=== PATIENT | male | born 1945 | race Caucasian/White ===

== ENCOUNTER → 2017-03-11 | Outpatient (CLI) | payer MEDICARE ==
[~2017-03-11] MED LIST: ALBUTEROL0.09 MG/A2 INH; ALDACTONE25 MG PO; ALVESCO160 MCG/AC PO; ALVESCO80 MCG/ACT IH; AMIODARONE HYD200 MG PO; ASPIRIN CHILDRE81 MG PO; CALCIUM + D 5001 TAB PO; CALCIUM 500 W/V1 TAB PO; CALCIUM 600/VIT1 TAB PO; CALCIUM CITRATE PO; COQ-10100 MG PO; COREG12.5 MG PO; COREG25 MG PO; COREG6.25 MG PO; FISH OIL 10001000 MG PO; HYDR25T PO; K-DUR 1010 MEQ PO; KEFLEX500 MG PO; LASIX40 MG PO; LISINOPRIL40 MG PO; LOPRESSOR25 MG PO; METFORMIN500 MG PO; PROAIR HFA0.09 MG/AC INH; PROAIR HFA8.5 GM INH; SPIRIVA18 MCG PO; VENTOLIN0.09 MG/AC INH; VITAMIN B122500 MCG SL; VITAMIN D31000 IU PO; XALATAN 0.005%2.5 ML OU; ZOCOR20 MG PO
== END | disposition home or self-care (01) ==
LOC: CARD 02:45
DX: I25.5 Ischemic cardiomyopathy (principal); I49.3 Ventricular premature depolarization

== ENCOUNTER 2017-04-29 21:45 | Inpatient (IN) | payer MEDICARE ==
[~2017-04-29] VITALS: Ht 170.1 cm; Wt 113.9 kg
[2017-04-29 21:56] VITALS: BP 179/69
[2017-04-29] MEDS ORDERED: KLOR-CON SPRIN10 MEQ PO (22:05)
[2017-04-29] MEDS ORDERED: SPIRIVA -- 3018 MCG INH (22:06)
[2017-04-29 22:35] VITALS: BP 180/84
[2017-04-29 22:41] LABS: BASO # 0.1 10*3/uL (0.0-0.1); BASO % 0.9 % (0.0-1.0); EOS # 0.8 10*3/uL (0.0-0.4); EOS % 9.1 % (1.0-4.0); HEMATOCRIT 43.9 % (42.0-52.0); HEMOGLOBIN 15.1 g/dl (14.0-18.0); LYMPH # 2.1 10*3/uL (1.3-4.4); LYMPH % 22.8 % (27.0-41.0); MEAN CELL VOLUME 89.2 fl (80.0-94.0); MEAN CORPUSCULAR HGB 30.7 pg (27.0-31.0); MEAN CORPUSCULAR HGB CONC 34.4 g/dl (33.0-37.0); MEAN PLATELET VOLUME 9.5 fl (9.6-12.3); MONO # 1.1 10*3/uL (0.1-1.0); MONO % 11.4 % (3.0-9.0); NEUT # 5.2 10*3/uL (2.3-7.9); NEUT % 55.5 % (47.0-73.0); PLATELET COUNT AUTOMATED 260 10*3/uL (130-400); RED BLOOD COUNT 4.92 10*6/uL (4.50-5.90); RED CELL DISTRI WIDTH 13.2 % (0-14.5); WHITE BLOOD COUNT 9.3 10*3/uL (4.8-10.8)
[2017-04-29 22:42] LABS: ALKALINE PHOSPHATASE 74 U/L (45-117); BILIRUBIN, DIRECT 0.1 mg/dL (0.0-0.2); BILIRUBIN, TOTAL 0.6 mg/dl (0.2-1.0); BUN 36 mg/dl (7-24); CARBON DIOXIDE 30 mmol/L (21-32); CHLORIDE 98 mmol/L (98-107); EST GLOM FILT AFRICAN AMERICAN 47 ml/min; GLUCOSE 106 mg/dL (65-99); POTASSIUM 4.6 mmol/L (3.5-5.1); SGOT/AST 45 IU/L (3-35); SGPT/ALT 60 U/L (12-78); SODIUM 137 mmol/L (136-145)
[2017-04-29 22:47] LABS: TROPONIN I < 0.015 ng/ml (<0.045)
[2017-04-30 01:22] VITALS: BP 114/54
[2017-04-30 01:45] VITALS: BP 149/81
[2017-04-30 02:30] LABS: LA>2 REFLEX 2 HR DRAW NOW
[2017-04-30 02:41] LABS: LA>2 RFLX FOLLOW UP AT 2 HRS 3.7 mmol/L (0.4-2.0)
[2017-04-30 04:34] LABS: LA>2 REFLEX 4 HR DRAW NOW
[2017-04-30 06:33] LABS: BASO % 0.2 % (0.0-1.0); HEMATOCRIT 39.7 % (42.0-52.0); HEMOGLOBIN 13.4 g/dl (14.0-18.0); LYMPH # 0.5 10*3/uL (1.3-4.4); LYMPH % 8.4 % (27.0-41.0); MEAN CELL VOLUME 89.4 fl (80.0-94.0); MEAN CORPUSCULAR HGB 30.2 pg (27.0-31.0); MEAN CORPUSCULAR HGB CONC 33.8 g/dl (33.0-37.0); MEAN PLATELET VOLUME 9.8 fl (9.6-12.3); MONO # 0.1 10*3/uL (0.1-1.0); MONO % 1.3 % (3.0-9.0); NEUT % 89.6 % (47.0-73.0); PLATELET COUNT AUTOMATED 219 10*3/uL (130-400); RED BLOOD COUNT 4.44 10*6/uL (4.50-5.90); RED CELL DISTRI WIDTH 13.2 % (0-14.5); WHITE BLOOD COUNT 5.6 10*3/uL (4.8-10.8)
[2017-04-30 06:55] LABS: HEMOGLOBIN A1c 6.4 % (4.8-5.6)
[2017-04-30 07:04] LABS: PROTHROMBIN TIME 10.9 SECONDS (9.0-12.4)
[2017-04-30 07:05] LABS: ALBUMIN 3.3 gm/dl (3.1-4.5); BILIRUBIN, TOTAL 0.5 mg/dl (0.2-1.0); MAGNESIUM 1.6 mg/dL (1.5-2.1); POTASSIUM 4.3 mmol/L (3.5-5.1)
[2017-04-30 07:13] LABS: THYROID STIM HORMONE (HS) 2.68 uIU/ml (0.358-4.75)
[2017-04-30 07:14] LABS: FOLIC ACID 23.84 ng/mL (>5.38); VITAMIN D, 25-HYDROXY 39.1 ng/mL (30-100)
[2017-04-30 08:00] VITALS: BP 138/72
[2017-04-30] MEDS ORDERED: ATORVASTATIN CA20 M1 PO (10:53)
[2017-04-30 12:00] VITALS: BP 160/78
[2017-04-30 17:22] VITALS: BP 157/76
[2017-04-30 19:03] LABS: LA>2 REFLEX 2 HR DRAW NOW
[2017-04-30 19:25] LABS: LA>2 RFLX FOLLOW UP AT 2 HRS 3.4 mmol/L (0.4-2.0)
[2017-04-30 20:00] VITALS: BP 156/74
[2017-04-30 21:18] LABS: LA>2 REFLEX 4 HR DRAW NOW
[2017-05-01] VITALS: BP 133/76
[2017-05-01 02:01] LABS: LA>2 REFLEX 2 HR DRAW NOW
[2017-05-01 02:18] LABS: LA>2 RFLX FOLLOW UP AT 2 HRS 2.7 mmol/L (0.4-2.0)
[2017-05-01 04:12] LABS: LA>2 REFLEX 4 HR DRAW NOW
[2017-05-01 06:22] LABS: HEMATOCRIT 38.1 % (42.0-52.0); HEMOGLOBIN 12.8 g/dl (14.0-18.0); MEAN CELL VOLUME 89.6 fl (80.0-94.0); MEAN CORPUSCULAR HGB 30.1 pg (27.0-31.0); MEAN CORPUSCULAR HGB CONC 33.6 g/dl (33.0-37.0); MEAN PLATELET VOLUME 10.2 fl (9.6-12.3); PLATELET COUNT AUTOMATED 234 10*3/uL (130-400); RED BLOOD COUNT 4.25 10*6/uL (4.50-5.90); RED CELL DISTRI WIDTH 13.6 % (0-14.5); WHITE BLOOD COUNT 14.1 10*3/uL (4.8-10.8)
[2017-05-01 06:51] LABS: BURR CELLS FEW; LYMPHOCYTE # 0.6 10*3/uL (1.3-4.4); MONOCYTE # 0.1 10*3/uL (0.1-1.0); NEUTROPHIL # 13.4 10*3/uL (2.3-7.9); NEUTROPHILS 95 % (47-73); PLATELET SUFFICIENCY NORMAL (NORMAL); TOTAL CELLS COUNTED 100 #CELLS
[2017-05-01 06:53] LABS: CARBON DIOXIDE 23 mmol/L (21-32); CHLORIDE 102 mmol/L (98-107); EST GLOM FILT AFRICAN AMERICAN > 60 ml/min; GLUCOSE 178 mg/dL (65-99); POTASSIUM 4.1 mmol/L (3.5-5.1); SODIUM 136 mmol/L (136-145)
[2017-05-01 06:55] LABS: BUN 25 mg/dl (7-24)
[2017-05-01 08:00] VITALS: BP 138/72
[2017-05-01] MEDS ORDERED: PREDNISONE10 MG PO (11:21)
[2017-05-01] MEDS ORDERED: LEVOFLOXACIN500 MG PO (11:21)
[2017-05-01 12:00] VITALS: BP 155/76
== END 2017-05-01 12:43 | disposition home or self-care (01) | DRG 871 ==
LOC: ED 21:45 → 5E 04-30 00:07 → EDHOLD 04-30 00:07 → 5E 04-30 00:34
PROVIDERS: Emergency Medicine; Internal Medicine; Student in an Organized Health Care Education/Training Program
DX: A41.9 Sepsis, unspecified organism (principal); N17.0 Acute kidney failure with tubular necrosis; I11.0 Hypertensive heart disease with heart failure; J18.9 Pneumonia, unspecified organism; E87.2 Acidosis; E11.8 Type 2 diabetes mellitus with unspecified complications; I50.30 Unspecified diastolic (congestive) heart failure; J44.1 Chronic obstructive pulmonary disease with (acute) exacerbation; J44.0 Chronic obstructive pulmonary disease with (acute) lower respiratory infection; R65.20 Severe sepsis without septic shock; E86.0 Dehydration; D72.810 Lymphocytopenia; E78.5 Hyperlipidemia, unspecified; Z95.1 Presence of aortocoronary bypass graft; Z95.0 Presence of cardiac pacemaker; I25.2 Old myocardial infarction; Z87.891 Personal history of nicotine dependence; Z82.49 Family history of ischemic heart disease and other diseases of the circulatory system; Z80.3 Family history of malignant neoplasm of breast; Z88.4 Allergy status to anesthetic agent; Z91.030 Bee allergy status; Z79.51 Long term (current) use of inhaled steroids; Z79.84 Long term (current) use of oral hypoglycemic drugs; Z79.899 Other long term (current) drug therapy

== ENCOUNTER → 2017-07-05 | Outpatient (CLI) | payer MEDICARE ==
[~2017-07-05] MED LIST changes: +ATORVASTATIN CA20 M1 PO; +KLOR-CON SPRIN10 MEQ PO; +LEVOFLOXACIN500 MG PO; +PREDNISONE10 MG PO; +SPIRIVA -- 3018 MCG INH
[2017-07-05 08:07] LABS: BASO # 0.1 10*3/uL (0.0-0.1); BASO % 0.9 % (0.0-1.0); EOS # 0.5 10*3/uL (0.0-0.4); EOS % 9.3 % (1.0-4.0); HEMATOCRIT 40.5 % (42.0-52.0); HEMOGLOBIN 13.6 g/dl (14.0-18.0); LYMPH # 1.5 10*3/uL (1.3-4.4); LYMPH % 27.4 % (27.0-41.0); MEAN CORPUSCULAR HGB 30.6 pg (27.0-31.0); MEAN CORPUSCULAR HGB CONC 33.6 g/dl (33.0-37.0); MEAN PLATELET VOLUME 9.8 fl (9.6-12.3); MONO # 0.6 10*3/uL (0.1-1.0); MONO % 11.5 % (3.0-9.0); NEUT # 2.7 10*3/uL (2.3-7.9); NEUT % 50.5 % (47.0-73.0); PLATELET COUNT AUTOMATED 243 10*3/uL (130-400); RED BLOOD COUNT 4.45 10*6/uL (4.50-5.90); RED CELL DISTRI WIDTH 13.6 % (0-14.5); WHITE BLOOD COUNT 5.4 10*3/uL (4.8-10.8)
[2017-07-05 08:13] LABS: BILIRUBIN NEGATIVE (NEGATIVE); BLOOD NEGATIVE (NEGATIVE); COLOR YELLOW (YELLOW); GLUCOSE NEGATIVE (NEGATIVE); KETONE TRACE (NEGATIVE); LEUKO ESTERASE NEGATIVE (NEGATIVE); NITRITE NEGATIVE (NEGATIVE); PROTEIN NEGATIVE (NEGATIVE)
[2017-07-05 08:17] LABS: CLARITY SL CLOUDY (CLEAR)
[2017-07-05 08:18] LABS: ALBUMIN 3.4 gm/dl (3.1-4.5); POTASSIUM 4.5 mmol/L (3.5-5.1)
[2017-07-05 08:19] LABS: BILIRUBIN, TOTAL 0.6 mg/dl (0.2-1.0); TOTAL PROTEIN 6.8 gm/dL (6.4-8.2)
[2017-07-05 08:20] LABS: CALCIUM OXALATE CRYSTALS 2+
[2017-07-05 08:21] LABS: HEMOGLOBIN A1c 6.4 % (4.8-5.6)
[2017-07-05 08:22] LABS: HYALINE CAST TNTC
[2017-07-05 08:51] LABS: PROTHROMBIN TIME 10.1 SECONDS (9.0-12.4)
== END | disposition home or self-care (01) ==
LOC: LAB 07:14
PROVIDERS: Orthopaedic Surgery
DX: Z01.818 Encounter for other preprocedural examination (principal); E11.9 Type 2 diabetes mellitus without complications; J44.9 Chronic obstructive pulmonary disease, unspecified; I25.10 Atherosclerotic heart disease of native coronary artery without angina pectoris; R35.0 Frequency of micturition; D68.8 Other specified coagulation defects; I10 Essential (primary) hypertension; Z95.1 Presence of aortocoronary bypass graft

== ENCOUNTER → 2017-08-15 | Outpatient (CLI) | payer MEDICARE | END | disposition home or self-care (01) | LOC: CT 02:09 | DX: M41.86 Other forms of scoliosis, lumbar region (principal); M48.05 Spinal stenosis, thoracolumbar region; M62.50 Muscle wasting and atrophy, not elsewhere classified, unspecified site; M47.896 Other spondylosis, lumbar region; M25.78 Osteophyte, vertebrae ==

== ENCOUNTER → 2018-01-29 | Outpatient (CLI) | payer MEDICARE ==
[2018-01-29 08:03] LABS: ALBUMIN 3.4 gm/dl (3.1-4.5); ALKALINE PHOSPHATASE 80 U/L (45-117); BUN 20 mg/dl (7-24); CHLORIDE 98 mmol/L (98-107); CREATININE 1.27 mg/dL (0.70-1.30); POTASSIUM 4.7 mmol/L (3.5-5.1); SGOT/AST 53 IU/L (3-35); SGPT/ALT 90 U/L (12-78); SODIUM 136 mmol/L (136-145); TOTAL PROTEIN 7.3 gm/dL (6.4-8.2)
== END | disposition home or self-care (01) ==
LOC: LAB 07:16
PROVIDERS: Internal Medicine Interventional Cardiology
DX: I25.10 Atherosclerotic heart disease of native coronary artery without angina pectoris (principal); I25.5 Ischemic cardiomyopathy; E78.2 Mixed hyperlipidemia; R06.09 Other forms of dyspnea; Z95.810 Presence of automatic (implantable) cardiac defibrillator; I11.0 Hypertensive heart disease with heart failure; I50.9 Heart failure, unspecified; Z87.891 Personal history of nicotine dependence; Z95.1 Presence of aortocoronary bypass graft; Z79.899 Other long term (current) drug therapy

== ENCOUNTER 2018-10-31 15:41 | Inpatient (IN) | payer MEDICARE ==
[~2018-10-31] VITALS: Ht 170.1 cm; Wt 116.3 kg
--- NOTE | ~2018-10-31 | PR ---
[place], [place] PROGRESS NOTE NAME: CHRIST SANCHEZ I UNIT #: [id number] ROOM: 511 DOCTOR: VENKAT FOREMAN MD,JOSE R BIRTHDATE: [birth year] DOS: 11/03/2018 SUBJECTIVE: The patient was noted comfortable at this time, sitting on the chair this morning. Denies symptoms of coughing, sputum expectoration, chest pain at the present time. Denies any pain of the lower extremity edema. OBJECTIVE: VITAL SIGNS: Normal temperature, respiratory rate 20, heart rate 69, blood pressure 132/72, pulse oxygen saturation recorded as 97% at rest on room air. HEAD, EYES, EARS, NOSE, AND THROAT: Chronic obesity. NECK: Supple. CARDIOVASCULAR SYSTEM: S1, S2 audible. LUNGS: Clear bilaterally. There were no wheezing or crackles. ABDOMEN: Soft and obese. EXTREMITIES: Chronic changes. LABORATORY DATA: CBC this morning, WBC count 12.6, hemoglobin 13.8, platelet count normal. The BMP this morning, BUN 43, creatinine 1.45, sodium 132. IMPRESSION: 1. Resolving acute exacerbation of bronchial asthma progressive with current medical management. 2. Mild hyponatremia. 3. History of chronic kidney disease. PLAN OF THERAPY: Continuation of the bronchodilators, oxygen supplementation. Solu-Medrol has been changed to 40 mg daily dosing. Discharge planning per primary care attending, upon stability would be suggested. JOSE R ROBLEDO MD CM:PNTRANS [id number] JOSE R FOREMAN MD 11/03/18 1239 interface
--- NOTE | ~2018-10-31 | EKG ---
[place], [place] ELECTROCARDIOGRAM REPORT NAME: CHRIST SANCHEZ I UNIT #: [id number] ROOM: 511 DOCTOR: BIJAN DRAFT REPORT BIRTHDATE: [birth year] [facility] Test Date: 2018-10-31 Test Time: 18:54:15 Pat Name: CHRIST SANCHEZ Department: Room: 511 Gender: M Electrical Journeyman: Any Chou : 1945 Requested By: DIDI ESCOBAR Order Number: [id number] Reading MD: Ann Tong MD Measurements Intervals [place] Rate: 61 P: -69 OR: 45 QRS: 23 QRSD: 134 T: 129 QT: 416 QTc: 419 Interpretive Statements Sinus or ectopic atrial rhythm Short OR interval Left bundle branch block Baseline wander in lead(s) V4 Electronically Signed On 11-07-2018 8:42:49 PST by Ann Tong MD CM:EKGRPT:ELECTROCARDIOGRAM REPORT [id number] DIDI WANG DRAFT REPORT DIDI ESCOBAR DO
--- NOTE | ~2018-10-31 | EKG ---
[place], [place] ELECTROCARDIOGRAM REPORT NAME: CHRIST SANCHEZ I UNIT #: [id number] ROOM: 511 DOCTOR: BIJAN DRAFT REPORT BIRTHDATE: [birth year] [facility] Test Date: 2018-11-01 Test Time: 14:17:17 Pat Name: CHRIST SANCHEZ Department: Room: 511 1 Gender: M Barometers Calibrator: EMILIANO : 1945 Requested By: DALIA NICHOLAS Order Number: [id number] Reading MD: Ann Tong MD Measurements Intervals [place] Rate: 69 P: 15 NV: 295 QRS: 21 QRSD: 140 T: 153 QT: 437 QTc: 469 Interpretive Statements Sinus rhythm Multiple ventricular premature complexes Prolonged NV interval Probable left atrial enlargement IVCD, consider atypical LBBB Electronically Signed On 11-07-2018 8:44:35 PST by Ann Tong MD CM:EKGRPT:ELECTROCARDIOGRAM REPORT [id number] DALIA WANG DRAFT REPORT DLAIA NICHOLAS DO
--- NOTE | ~2018-10-31 | CON ---
[place], [place] REPORT OF CONSULTATION [id number] UN[facility] #: [id number] ROOM: 511 DOCTOR: JOSE R WORTHY MD BIRTHDATE: [birth year] DOS: 11/02/2018 REASON FOR CONSULTATION: Assess the patient's symptoms of coughing and wheezing. HISTORY OF PRESENT ILLNESS: This is a 73-year-old white male patient with known history of uncomplicated moderate persistent bronchial asthma, treated at home. The patient was noted in usual state of health, last assessment in the office over a week ago. He stated he became acutely ill, started with having nonproductive cough that started with active wheezing and shortness of breath. Later on, the patient started with a cough, which has started after the hospitalization. There were no symptoms of chest pain that prompted the patient to come to the hospital. The patient has been assessed in the hospital with recurrent symptoms then admitted to the hospital. The patient denies symptoms of fever or chills. Denies chest pain or hemoptysis. The respiratory symptom has been decreased significantly in the last 24 hours as per patient with current treatment, which has been given to the patient. REVIEW OF SYSTEMS: CONSTITUTIONAL: Fatigue and tiredness reported without any symptoms of fever or chills. EYES: Denies burning, redness, or tenderness. EARS, NOSE, THROAT SYMPTOMS: Denies sore throat, hoarseness, otalgia, postnasal drainage or epistaxis. CARDIOVASCULAR SYSTEM: No anginal pain, edema of the lower extremity. GASTROINTESTINAL SYMPTOMS: Dysphagia, nausea, vomiting, diarrhea, abdominal pain, hematemesis, melena, or hematochezia. GENITOURINARY SYMPTOMS: No dysuria, suprapubic pain, hematuria. MUSCULOSKELETAL SYMPTOMS: No acute joint pain, redness, or tenderness. SKIN: Denies lesions or rashes. CENTRAL NERVOUS SYSTEM: Denies any dizziness, headache, diplopia, or syncopal episodes. Remaining systems were reviewed, they were noted all negative. PAST MEDICAL HISTORY: 1. Uncomplicated moderate persistent bronchial asthma. 2. Congestive heart failure, systolic and diastolic dysfunction. 3. Diabetes mellitus. 4. Obesity. 5. Hyperlipidemia. 6. Coronary artery disease. 7. Essential hypertension. PAST SURGICAL HISTORY: 1. Surgery of the lower back. 2. Permanent pacemaker insertion. 3. Frequent coronary bypass grafting. 4. Radiofrequency ablation of the crackle, cardiac dysrhythmias management. [place], [place] REPORT OF CONSULTATION NAME: CHRIST SANCHEZ I UNIT #: [id number] ROOM: [facility] DOCTOR: JOSE R WORTHY MD BIRTHDATE: [birth year] SOCIAL HISTORY: The patient lives in his own home, has been noted tobacco use in the past that has been discontinued several years ago. History of alcohol use or any illicit drugs. FAMILY HISTORY: The patient's father at 65 with complication of coronary artery disease. Mother 6 years old, complication related to metastatic breast cancer. HOME MEDICATIONS: Noted several that include ProAir HFA, amiodarone, aspirin, Coreg, vitamin D, Lasix, Lantus, eye drops, levothyroxine, lisinopril, metformin. Spiriva, Aldactone, Crestor, Robaxin and CoQ10. DRUG ALLERGIES: THE PATIENT FOR REPORTED ALLERGY TO LIDOCAINE. PHYSICAL EXAMINATION: GENERAL: A 73-year-old male patient who has been currently sitting on the chair in his room. The height patient recorded by the nursing staff, the patient's current admission. VITAL SIGNS: Height of 5 feet 7 inches, weight of 256 pounds, BMI of 40. Vital signs which has been recorded showed normal temperature since admission, respiratory rate 20-16. Height 71-69, blood pressure of 101/64-171/59. Pulse ox saturation on 2 liters nasal cannula 96% saturation. Room air on admission was 92% saturation. HEAD, EYES, EARS, NOSE, AND THROAT: Chronic obesity. Head was atraumatic. CARDIOVASCULAR SYSTEM: S1, S2 is audible. LUNGS: Noted with [id number] decreased breath sounds noted scattered wheezing. There were no crackles. ABDOMEN: Soft, nontender. Bowel sounds present. EXTREMITIES: Noted without any edema. MUSCULOSKELETAL: Without any acute deformities. CENTRAL NERVOUS SYSTEM: Cranial nerves 2-12 intact. No gross focal deficit. LABORATORY AND DIAGNOSTIC DATA: CBC on admission was noted as normal. CBC on the 7th. PT/PTT was noted as normal. BMP that was done on 10/31/2018, glucose 182, BUN 47, creatinine 2.12. Sodium 132. PT/INR noted as normal. CBC of 11/01/2018 was noted as normal CBC. CMP of 11/01/2018, BUN 42, creatinine 1.87, glucose 154. Sodium was decreased to 131. BMP this morning showed glucose 139, BUN of 48, creatinine 1.93. Sodium 130. CBC, WBC count 13.7, hemoglobin and hematocrit, platelet count still remains normal. Chest x-ray just which was done on admission 10/31/2018 was noted without any acute abnormalities. IMPRESSION: 1. The patient will be currently admitted to the hospital, was responding to treatment gradual reduction and improvement of the respiratory was noted, exacerbation of bronchial asthma and acute bronchitis. 2. Acute change most likely chronic in the minimum stage 3 would be considered. 3. Hyponatremia related to chronic kidney disease as well. There were no acute history of congestive heart failure, systolic and diastolic function, does not show any signs of acute congestive heart failure at the present time. [place], [place] REPORT OF CONSULTATION NAME: CHRIST SANCHEZ I UNIT #: [id number] ROOM: 511 DOCTOR: JOSE R WORTHY MD BIRTHDATE: [birth year] PLAN OF TREATMENT: Further reduction of Solu-Medrol 40 mg b.i.d. dosing today. Consider possible discharge in the next 24 hours after stabilization of the cardiopulmonary status with patient and other medical management. Usual care. All other supportive therapy a plan of care for the patient as well. JOSE R ROBLEDO MD CM:CONSTR:REPORT OF CONSULTATION 1253 11/02/18 1837 interface
--- NOTE | ~2018-10-31 | EKG ---
[place], [place] ELECTROCARDIOGRAM REPORT NAME: CHRIST SANCHEZ I UNIT #: [id number] ROOM: 511 DOCTOR: BIJAN DRAFT REPORT BIRTHDATE: [birth year] [facility] Test Date: 2018-10-31 Test Time: 15:45:52 Pat Name: CHRIST SANCHEZ Department: Room: 511 Gender: M Importer Or Exporter: : 1945 Requested By: DIDI ESCOBAR Order Number: [id number] Reading MD: Ann Tong MD Measurements Intervals [place] Rate: 73 P: 9 ME: 74 QRS: 54 QRSD: 149 T: QT: 422 QTc: 465 Interpretive Statements Sinus rhythm Short ME interval Left atrial enlargement Nonspecific intraventricular conduction delay Minimal ST depression, lateral leads No previous ECG available for comparison Electronically Signed On 11-07-2018 8:42:16 PST by Ann Tong MD CM:EKGRPT:ELECTROCARDIOGRAM REPORT [id number] DIDI WANG DRAFT REPORT DIDI ESCOBAR DO
--- NOTE | ~2018-10-31 | EKG ---
[place], [place] ELECTROCARDIOGRAM REPORT NAME: CHRIST SANCHEZ I UNIT #: [id number] ROOM: 511 DOCTOR: BIJAN DRAFT REPORT BIRTHDATE: [birth year] [facility] [place] Test Date: 2018-10-31 Test Time: 21:43:45 Pat Name: CHRIST SANCHEZ Department: Room: 511 Gender: M Quality Improvement Manager: Any Chou : 1945 Requested By: DIDI ESCOBAR Order Number: [id number] Reading MD: Ann Tong MD Measurements Intervals [place] Rate: 65 P: 50 DE: 276 QRS: 37 QRSD: 139 T: 127 QT: 434 QTc: 452 Interpretive Statements Sinus rhythm Multiple ventricular premature complexes Prolonged [place] interval Nonspecific intraventricular conduction delay Repol abnrm suggests ischemia, lateral leads Electronically Signed On 11-07-2018 8:43:00 PST by Ann Tong MD CM:EKGRPT:ELECTROCARDIOGRAM REPORT [id number] DIDI WNAG DRAFT REPORT DIDI ESCOBAR DO
[~2018-10-31 15:41] MED LIST changes: -VITAMIN D31000 IU PO; +VITAMIN D35000 UNIT PO
[2018-10-31 15:44] VITALS: BP 172/104
[2018-10-31 15:59] LABS: BASO # 0.1 10*3/uL (0.0-0.1); BASO % 0.9 % (0.0-1.0); HEMATOCRIT 44.9 % (42.0-52.0); HEMOGLOBIN 14.7 g/dl (14.0-18.0); LYMPH # 1.8 10*3/uL (1.3-4.4); LYMPH % 17.4 % (27.0-41.0); MEAN CELL VOLUME 92.4 fl (80.0-94.0); MEAN CORPUSCULAR HGB 30.2 pg (27.0-31.0); MEAN CORPUSCULAR HGB CONC 32.7 g/dl (33.0-37.0); MEAN PLATELET VOLUME 9.6 fl (9.6-12.3); MONO # 1.3 10*3/uL (0.1-1.0); MONO % 12.7 % (3.0-9.0); NEUT # 6.1 10*3/uL (2.3-7.9); NEUT % 58.6 % (47.0-73.0); PLATELET COUNT AUTOMATED 287 10*3/uL (130-400); RED BLOOD COUNT 4.86 10*6/uL (4.50-5.90); RED CELL DISTRI WIDTH 13.5 % (0-14.5); WHITE BLOOD COUNT 10.4 10*3/uL (4.8-10.8)
[2018-10-31 16:08] LABS: ACT PARTIAL THROMBO TIME 24.9 SECONDS (20.8-31.5)
[2018-10-31 16:13] LABS: LIPASE 202 U/L (73-393)
[2018-10-31 16:16] LABS: ALKALINE PHOSPHATASE 72 U/L (45-117); BUN 47 mg/dl (7-24); CHLORIDE 94 mmol/L (98-107); CREATININE 2.12 mg/dL (0.70-1.30); POTASSIUM 4.8 mmol/L (3.5-5.1); SGOT/AST 35 IU/L (3-35); SGPT/ALT 60 U/L (12-78); SODIUM 132 mmol/L (136-145); TOTAL PROTEIN 8.1 gm/dL (6.4-8.2); TROPONIN I < 0.015 ng/ml (<0.045)
[2018-10-31 16:30] VITALS: BP 168/88
[2018-10-31 18:11] VITALS: BP 164/88
[2018-10-31] MEDS ORDERED: ASPIRIN CHEWABL81 MG PO (18:33)
[2018-10-31] MEDS ORDERED: BRIMONIDINE TAR10 ML OPH (18:34)
[2018-10-31] MEDS ORDERED: ONCE DAILY1 EACH PO (18:37)
[2018-10-31] MEDS ORDERED: CRESTOR5 MG PO (18:38)
[2018-10-31] MEDS ORDERED: LEVOTHYROXINE50 MCG PO (18:41)
[2018-10-31] MEDS ORDERED: METFORMIN ER500 MG PO (18:42)
[2018-10-31 20:00] VITALS: BP 171/69
[2018-11-01] VITALS: BP 127/61
[2018-11-01 06:19] LABS: HEMATOCRIT 43.7 % (42.0-52.0); HEMOGLOBIN 14.4 g/dl (14.0-18.0); PLATELET COUNT AUTOMATED 262 10*3/uL (130-400); RED CELL DISTRI WIDTH 13.2 % (0-14.5); WHITE BLOOD COUNT 6.5 10*3/uL (4.8-10.8)
[2018-11-01 06:54] LABS: ALBUMIN 3.5 gm/dl (3.1-4.5); CREATININE 1.87 mg/dL (0.70-1.30); POTASSIUM 4.4 mmol/L (3.5-5.1); TOTAL PROTEIN 7.6 gm/dL (6.4-8.2)
[2018-11-01 06:58] LABS: THYROID STIM HORMONE (HS) 1.97 uIU/ml (0.358-4.75)
[2018-11-01 06:59] LABS: TOTAL CELLS COUNTED 100 #CELLS
[2018-11-01 07:00] LABS: PLATELET SUFFICIENCY NORMAL (NORMAL)
[2018-11-01 08:01] LABS: VITAMIN D, 25-HYDROXY 39.9 ng/mL (30-100)
[2018-11-01 09:00] VITALS: BP 122/64
[2018-11-01] MEDS ORDERED: METHOCARBAMOL750 M1 PO (09:40)
[2018-11-01] MEDS ORDERED: AMIODARONE HYD200 MG PO (09:41)
[2018-11-01 12:00] VITALS: BP 109/53
[2018-11-01 16:00] VITALS: BP 105/69
[2018-11-01 20:00] VITALS: BP 94/68
[2018-11-02] VITALS: BP 101/64
[2018-11-02 06:36] LABS: HEMATOCRIT 43.3 % (42.0-52.0); HEMOGLOBIN 14.5 g/dl (14.0-18.0); MEAN CELL VOLUME 92.1 fl (80.0-94.0); MEAN CORPUSCULAR HGB 30.9 pg (27.0-31.0); MEAN CORPUSCULAR HGB CONC 33.5 g/dl (33.0-37.0); PLATELET COUNT AUTOMATED 273 10*3/uL (130-400); RED CELL DISTRI WIDTH 13.3 % (0-14.5); WHITE BLOOD COUNT 13.7 10*3/uL (4.8-10.8)
[2018-11-02 07:08] LABS: ATYPICAL LYMPHS 2 % (0-0); PLATELET SUFFICIENCY NORMAL (NORMAL); TOTAL CELLS COUNTED 100 #CELLS
[2018-11-02 07:21] LABS: POTASSIUM 4.4 mmol/L (3.5-5.1)
[2018-11-02 07:29] LABS: CREATININE 1.93 mg/dL (0.70-1.30); PHOSPHOROUS 4.2 mg/dL (2.5-4.9)
[2018-11-02 12:00] VITALS: BP 125/73
[2018-11-02 16:00] VITALS: BP 132/65
[2018-11-02 20:00] VITALS: BP 125/55
[2018-11-03] VITALS: BP 110/49
[2018-11-03 06:19] LABS: CREATININE 1.45 mg/dL (0.70-1.30); POTASSIUM 4.6 mmol/L (3.5-5.1); TROPONIN I 0.031 ng/ml (<0.045)
[2018-11-03 06:40] LABS: BASO % 0.1 % (0.0-1.0); HEMATOCRIT 38.8 % (42.0-52.0); LYMPH # 0.8 10*3/uL (1.3-4.4); LYMPH % 6.3 % (27.0-41.0); MEAN CELL VOLUME 90.9 fl (80.0-94.0); MEAN CORPUSCULAR HGB 30.4 pg (27.0-31.0); MEAN CORPUSCULAR HGB CONC 33.5 g/dl (33.0-37.0); MEAN PLATELET VOLUME 10.1 fl (9.6-12.3); MONO % 7.9 % (3.0-9.0); NEUT # 10.8 10*3/uL (2.3-7.9); NEUT % 85.1 % (47.0-73.0); PLATELET COUNT AUTOMATED 244 10*3/uL (130-400); RED BLOOD COUNT 4.27 10*6/uL (4.50-5.90); RED CELL DISTRI WIDTH 13.4 % (0-14.5); WHITE BLOOD COUNT 12.6 10*3/uL (4.8-10.8)
[2018-11-03 08:00] VITALS: BP 132/72
[2018-11-03] MEDS ORDERED: DOXYCYCLINE100 M3 PO (10:34)
[2018-11-03] MEDS ORDERED: PREDNISONE10 MG PO (10:34)
[2018-11-03] MEDS ORDERED: LASIX40 MG PO (10:34)
== END 2018-11-03 12:23 | disposition home or self-care (01) | DRG 190 ==
LOC: ED 15:41 → 5E 16:56 → EDHOLD 16:56 → 5E 17:19
PROVIDERS: Emergency Medicine; Internal Medicine; Student in an Organized Health Care Education/Training Program
DX: J44.1 Chronic obstructive pulmonary disease with (acute) exacerbation (principal); N17.0 Acute kidney failure with tubular necrosis; E87.1 Hypo-osmolality and hyponatremia; J45.41 Moderate persistent asthma with (acute) exacerbation; I50.42 Chronic combined systolic (congestive) and diastolic (congestive) heart failure; I13.0 Hypertensive heart and chronic kidney disease with heart failure and stage 1 through stage 4 chronic kidney disease, or unspecified chronic kidney disease; Z68.41 Body mass index [BMI] 40.0-44.9, adult; D72.1 Eosinophilia; E78.5 Hyperlipidemia, unspecified; I25.10 Atherosclerotic heart disease of native coronary artery without angina pectoris; J44.0 Chronic obstructive pulmonary disease with (acute) lower respiratory infection; J20.9 Acute bronchitis, unspecified; E11.22 Type 2 diabetes mellitus with diabetic chronic kidney disease; N18.9 Chronic kidney disease, unspecified; E86.0 Dehydration; E66.01 Morbid (severe) obesity due to excess calories; E87.8 Other disorders of electrolyte and fluid balance, not elsewhere classified; E11.65 Type 2 diabetes mellitus with hyperglycemia; I25.2 Old myocardial infarction; Z95.1 Presence of aortocoronary bypass graft; Z95.0 Presence of cardiac pacemaker; Z82.49 Family history of ischemic heart disease and other diseases of the circulatory system; Z80.3 Family history of malignant neoplasm of breast; Z88.4 Allergy status to anesthetic agent; Z91.030 Bee allergy status; Z79.82 Long term (current) use of aspirin; Z79.899 Other long term (current) drug therapy

== ENCOUNTER 2019-01-03 09:22 | Inpatient (IN) | payer MEDICARE ==
[~2019-01-03] VITALS: Ht 170.2 cm; Wt 115.9 kg
--- NOTE | ~2019-01-03 | CON ---
[place], [place] REPORT OF CONSULTATION NAME: [facility]ANC[facility]Z [id number] #: [id number] ROOM: 405 DOCTOR: JOSE R WORTHY MD BIRTHDATE: [birth year] DOS: 01/04/2019 CONSULTATION REQUESTED BY: Hospitalist service. REASON FOR CONSULTATION: To assess the patient for acute exacerbation of respiratory symptom. HISTORY OF PRESENT ILLNESS: A 73-year-old white male patient who has been known to me with history of bronchial asthma has been treated for the patient under my care and has been admitted to the hospital on 01/03/2019 as he developed significant respiratory symptoms, which are noted worsened progressively in the last few days. The symptoms noted severe on Saturday. The patient came to the hospital and has been admitted to the hospital with acute exacerbation of chronic obstructive pulmonary disease on 01/03/2019. He has been started on corticosteroids, bronchodilators, antibiotics, and other therapies. The patient stated that symptoms have improved and decreased significantly in the last 24 hours with current medical management. He denies symptoms of fever or chills. Denies any symptoms of hemoptysis. There were no symptoms of chest pain reported. REVIEW OF SYSTEMS: CONSTITUTIONAL: Fatigue and tiredness noted. There were no symptoms of fever or chills at home. General weakness for the patient was reported. EYES: Denies any discharge, redness, tenderness, or diplopia. ENT: Denies postnasal drainage, sore throat, hoarseness, diplopia or earache. CARDIOVASCULAR: Denies anginal pain, palpitation or edema of the lower extremities. GASTROINTESTINAL: Denies dysphagia, abnormal weight loss, nausea, vomiting, diarrhea, abdominal pain, hematemesis, melena, or hematochezia. GENITOURINARY: Denies any urinary incontinence, dysuria, suprapubic pain or hematuria. MUSCULOSKELETAL: No acute joint pain, redness, or tenderness. CENTRAL NERVOUS SYSTEM: No dizziness, headache, diplopia, syncopal episodes. Remaining systems were reviewed. They were noted all negative. PAST MEDICAL HISTORY: 1. Uncomplicated moderate persistent bronchial asthma. 2. Congestive heart failure with systolic, diastolic dysfunction. The congestive heart failure noted well compensated and chronic. 3. Type 2 diabetes mellitus. 4. Moderate obesity. 5. Hyperlipidemia. 6. Coronary artery disease. 7. Essential hypertension. 8. Hypothyroidism. PAST SURGICAL HISTORY: 1. Low back surgery is lumbar laminectomy. 2. Radiofrequency ablation of the heart for the patient for the cardiac [place], [place] REPORT OF CONSULTATION NAME: CHRIST SANCHEZ I UNIT #: [id number] ROOM: 405 DOCTOR: VENKAT FOREMAN MD,JOSE R BIRTHDATE: [birth year] dysrhythmias. 3. Pacemaker insertion. 4. Coronary artery bypass grafting. SOCIAL HISTORY: The patient lives at home. Denies history of alcohol use, illicit drug use. He has smoked cigarettes in the past, which was discontinued many years ago. FAMILY HISTORY: The patient's father at the age 65 with complication of coronary artery disease. Mother at 60 years old with complication related to metastatic breast cancer. CURRENT MEDICATIONS: Administered were noted as Lasix, amiodarone, Aldactone, vitamin D, lisinopril, levothyroxine, Coreg, Mucinex, Solu-Medrol, sliding scale insulin coverage, Zithromax and Rocephin. DRUG ALLERGIES: THE PATIENT WAS RECORDED ALLERGY TO THE LIDOCAINE. PHYSICAL EXAMINATION: GENERAL: This is a 73-year-old white male currently noted comfortable without any acute distress, sitting on side of the bed this afternoon of assessment. Height of 5 feet 7 inches, weight of 257 pounds, BMI of 40. VITAL SIGNS: Normal temperature, respiratory rate 20, heart rate 58, blood pressure 120/66-105/54. Pulse oxygen saturation recorded on room air as 94% saturation. HEENT: Shows head was atraumatic. Eyes nonicterus. NECK: Supple. CARDIOVASCULAR SYSTEM: S1, S2 audible. LUNGS: The patient was noted occasional wheezing, no crackles. ABDOMEN: Soft, nontender, obese. EXTREMITIES: Without acute edema. MUSCULOSKELETAL: Without any acute deformities. CENTRAL NERVOUS SYSTEM: Cranial nerves 2-12 intact. LABORATORY DATA: The influenza A and B, nasal washing antigen yesterday were noted negative on admission. CMP admission yesterday, BUN 42, creatinine 1.97, glucose 125. Sodium 133. CBC of the patient was essentially noted as normal except 14% eosinophils for the patient as well. BNP was noted mildly elevated 506, normal troponin 3 sets for the patient in the last 24 hours. BMP this morning, BUN 40, creatinine 1.74. CBC of the patient this morning was noted as normal CBC. IMPRESSION: 1. 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 2. Mild acute kidney injury, chronic kidney disease secondary to diuretics and congestive heart failure. 3. History of combined congestive heart failure, systolic and diastolic compensated for the patient as well at the present time. [place], [place] REPORT OF CONSULTATION NAME: CRHIST SANCHEZ I UNIT #: [id number] ROOM: 405 DOCTOR: VENKAT FOREMAN MD,JOSE R BIRTHDATE: [birth year] 4. History of chronic moderate obesity as well. PLAN OF THERAPY: No changes from the pulmonary standpoint except consideration of possible home discharge of the patient at this time would be considered. The chest x-ray that was done on 01/03/2019 reviewed for the patient does not show any acute pulmonary infiltration or other abnormalities. He was advised to resume his home medications and outpatient followup to be established in the office in a couple of weeks post-discharge. The assessment and management were discussed with Dr. Claus Malloy who was the attending for the patient today's assessment. JOSE R ROBLEDO MD CM:CONSTR:REPORT OF CONSULTATION 1537 01/12/19 1037 interface
--- NOTE | ~2019-01-03 | EKG ---
[place], [place] ELECTROCARDIOGRAM REPORT NAME: CHRIST SANCHEZ I UNIT #: [id number] ROOM: 405 DOCTOR: BIJAN DRAFT REPORT BIRTHDATE: [birth year] [facility] Test Date: 2019-01-03 Test Time: 09:32:36 Pat Name: CHRIST SANCHEZ Department: Room: 405 Gender: M Parts Fabricator: Letty Onofre : 1945 Requested By: EMILIANO CROWDER Order Number: [id number] Reading MD: Jose Pina Measurements Intervals [place] Rate: 60 P: NM: 222 QRS: 39 QRSD: 129 T: 83 QT: 423 QTc: 423 Interpretive Statements Atrial-paced complexes FIRST DEGREE AV BLOCK Nonspecific intraventricular conduction delay Consider anterior infarct Minimal ST depression, lateral leads Compared to ECG 11/01/2018 14:17:17 Myocardial infarct finding now present ST (T wave) deviation now present Sinus rhythm no longer present Ventricular premature complex(es) no longer present Electronically Signed On 01-09-2019 11:55:30 PST by Jose Pina CM:EKGRPT:ELECTROCARDIOGRAM REPORT [id number] EMILIANO CROWDER EPIPHANY DRAFT REPORT EMILIANO CROWDER
[2019-01-03 09:22] VITALS: BP 142/92
[~2019-01-03 09:22] MED LIST changes: +ASPIRIN CHEWABL81 MG PO; +BRIMONIDINE TAR10 ML OPH; +CRESTOR5 MG PO; +DOXYCYCLINE100 M3 PO; +LEVOTHYROXINE50 MCG PO; +METFORMIN ER500 MG PO; +METHOCARBAMOL750 M1 PO; +ONCE DAILY1 EACH PO
[2019-01-03 09:44] LABS: BASO # 0.1 10*3/uL (0.0-0.1); BASO % 1.1 % (0.0-1.0); HEMATOCRIT 45.7 % (42.0-52.0); HEMOGLOBIN 15.2 g/dl (14.0-18.0); LYMPH # 1.2 10*3/uL (1.3-4.4); LYMPH % 16.2 % (27.0-41.0); MEAN CELL VOLUME 90.7 fl (80.0-94.0); MEAN CORPUSCULAR HGB 30.2 pg (27.0-31.0); MEAN CORPUSCULAR HGB CONC 33.3 g/dl (33.0-37.0); MEAN PLATELET VOLUME 9.4 fl (9.6-12.3); MONO # 0.8 10*3/uL (0.1-1.0); MONO % 10.7 % (3.0-9.0); NEUT # 4.2 10*3/uL (2.3-7.9); NEUT % 57.7 % (47.0-73.0); PLATELET COUNT AUTOMATED 296 10*3/uL (130-400); RED BLOOD COUNT 5.04 10*6/uL (4.50-5.90); RED CELL DISTRI WIDTH 13.3 % (0-14.5); WHITE BLOOD COUNT 7.4 10*3/uL (4.8-10.8)
[2019-01-03 10:00] LABS: ALBUMIN 3.5 gm/dl (3.1-4.5); CREATININE 1.97 mg/dL (0.70-1.30); POTASSIUM 4.6 mmol/L (3.5-5.1)
[2019-01-03 10:01] LABS: TROPONIN I 0.016 ng/ml (<0.045)
[2019-01-03 10:50] VITALS: BP 118/60
--- NOTE | 2019-01-03 11:01 | NUR ---
A 73, admitted to , under the services of WERNER Jacob DO with a diagnosis of HYPERGLYCEMIA, HYPONATREMIA, ARF, TUBULAR NECROSIS,AND COPD. Chief complaint is SOB. Patient arrived via ambulatory from ER. Monitor applied. Initial assessment completed. Vital signs taken and recorded. WERNER JACOB DO notified of admission to the unit. Orders received. See assessment for past medical history, medications and allergies. Patient and/or family oriented to unit. [address] visitation policy reviewed. Clothing/patient valuable form completed. SKIN INTACT WITH NO WOUNDS. FLU VACCINATIONS CURRENT MO MNEJIVAR
[2019-01-03 12:00] VITALS: BP 118/60
[2019-01-03 13:37] LABS: TROPONIN I < 0.015 ng/ml (<0.045)
[2019-01-03] MEDS ORDERED: FUROSEMIDE80 MG PO (13:48)
--- NOTE | 2019-01-03 14:35 | NUR ---
PTS HOME MEDICATIONS VERIFIED VIA FAX FROM [facility]. DR CHRISTOPHER NOTIFIED
--- NOTE | 2019-01-03 15:00 | NUR ---
PHYSICAL THERAPY PT EVAL COMPLETED TODAY ON LEVEL 4: FULL EVAULATION TO FOLLOW. BASED OFF OF EVALUATION PATIENT IS CURRENTLY SAFELY MOVING ABOUT ROOM WITH NO AD AND WITH NO LOB OR BALANCE ISSUES. AFTER ASSESSMENT HE STATES HE DOES NOT FEEL HE NEEDS PT AND BASED ON EVALUATION AGREE THAT PT SERVICES ARE NOT INDICATED AT THIS TIME. PT EVAL IS LOW COMPLEXITY BASED ON CHART REVIEW, TEST RESULTS AND EVALAUTION: [id number]. THANK YOU FOR REFERRAL. D/C RECOMMEDATIONS ARE HOME WITH . THANKS MAGGIE ANNE PT
--- NOTE | 2019-01-03 15:49 | NUR ---
CALLED DR ROBLEDO REGARDING NEW PT CONSULT. HE STATED HE WILL SEE PT TOMORROW. NO NEW ORDERS.
[2019-01-03 16:00] VITALS: BP 126/54
--- NOTE | 2019-01-03 16:43 | NUR ---
PATIENT INSTRUCTED ON USE OF FLUTTER VALVE.
[2019-01-03 20:00] VITALS: BP 117/58
--- NOTE | 2019-01-03 20:00 | NUR ---
SITTING UP ON SIDE OF BED. STATES THAT HE IS FEELING A LITTLE BIT BETTER. LUNGS CLEAR; NO COUGH NOTED. PULSE OX 95% ON ROOM AIR. ABDOMEN OBESE WITH NORMOACTIVE BOWEL SOUNDS. BILATERALL LOWER EXTREMITIES TAUT. PT. DENIES PAIN OR DISCOMFORT. CALL LIGHT WITHIN REACH.
--- NOTE | 2019-01-03 22:00 | NUR ---
BLOOD SUGAR 208; COVERAGE GIVEN PER EMAR.
[2019-01-04] VITALS: BP 105/54
--- NOTE | 2019-01-04 04:00 | NUR ---
RESTING IN BED WITH EYES CLOSED. CALL LIGHT WITHIN REACH.
--- NOTE | 2019-01-04 06:00 | NUR ---
PT. TOOK PO MEDICATION WITHOUT DIFFICULTY. PULSE OX 97% ON ROOM AIR. PT. STATES THAT HE BELIEVES HIS WEIGHT TO BE INCORRECT. PA REWEIGHED PT.
[2019-01-04 06:18] LABS: HEMATOCRIT 43.7 % (42.0-52.0); HEMOGLOBIN 14.7 g/dl (14.0-18.0); MEAN CELL VOLUME 90.7 fl (80.0-94.0); MEAN CORPUSCULAR HGB 30.5 pg (27.0-31.0); MEAN CORPUSCULAR HGB CONC 33.6 g/dl (33.0-37.0); MEAN PLATELET VOLUME 9.7 fl (9.6-12.3); PLATELET COUNT AUTOMATED 289 10*3/uL (130-400); RED BLOOD COUNT 4.82 10*6/uL (4.50-5.90); RED CELL DISTRI WIDTH 13.3 % (0-14.5); WHITE BLOOD COUNT 8.8 10*3/uL (4.8-10.8)
[2019-01-04 06:51] LABS: CREATININE 1.74 mg/dL (0.70-1.30); PHOSPHOROUS 3.2 mg/dL (2.5-4.9); POTASSIUM 4.4 mmol/L (3.5-5.1)
[2019-01-04 07:05] LABS: ATYPICAL LYMPHS 2 % (0-0); PLATELET SUFFICIENCY NORMAL (NORMAL); TOTAL CELLS COUNTED 100 #CELLS
[2019-01-04 12:00] VITALS: BP 128/66
[2019-01-04] MEDS ORDERED: PREDNISONE10 MG PO (13:24)
[2019-01-04] MEDS ORDERED: ZITHROMAX250 MG PO (13:24)
[2019-01-04] MEDS ORDERED: MUCINEX ER600 MG PO (13:24)
--- NOTE | 2019-01-04 14:15 | NUR ---
Discharge instructions reviewed with patient/family. Patient receptive and verbalizes understanding. Follow-up care arranged. Written instructions given to patient/family. MO MENJIVAR
[2019-01-06 07:06] LABS: ADENOVIRUS Negative (Negative); INFLUENZA A Negative (Negative); INFLUENZA B Negative (Negative); METAPNEUMOVIRUS Negative (Negative); PARAINFLUENZA 1 Negative (Negative); PARAINFLUENZA 2 Negative (Negative); PARAINFLUENZA 3 Negative (Negative); RHINOVIRUS Negative (Negative); RSV A Negative (Negative); RSV B Negative (Negative)
[2019-03-14] MEDS ORDERED: PREDNISONE10 MG PO (13:49)
[2019-04-28] MEDS ORDERED: PRAVACHOL20 MG PO (07:17)
[2019-04-28] MEDS ORDERED: XALATAN 0.005%2.5 ML OU (07:18)
[2019-04-28] MEDS ORDERED: ALPHAGAN-P 0.2%5 ML OS (07:23)
[2019-04-28] MEDS ORDERED: VITAMIN D32000 UNI1 PO (08:50)
[2019-04-29] MEDS ORDERED: AVPAK AZITHROM250 MG PO (09:02)
[2019-04-29] MEDS ORDERED: PREDNISONE10 MG PO (09:02)
[2019-04-29] MEDS ORDERED: MUCINEX1200 M1 PO (09:02)
[2019-05-23] MEDS ORDERED: PREDNISONE10 MG PO (09:46)
[2019-05-23] MEDS ORDERED: DOXYCYCLINE100 M3 PO (09:46)
== END 2019-01-04 14:15 | disposition home or self-care (01) | DRG 190 ==
LOC: ED 09:22 → EDHOLD 10:18 → 4E 10:18
PROVIDERS: Internal Medicine; Nurse Practitioner Family; ADMIT Internal Medicine
DX: J44.1 Chronic obstructive pulmonary disease with (acute) exacerbation (principal); N17.0 Acute kidney failure with tubular necrosis; E87.1 Hypo-osmolality and hyponatremia; J45.41 Moderate persistent asthma with (acute) exacerbation; I50.42 Chronic combined systolic (congestive) and diastolic (congestive) heart failure; Z68.41 Body mass index [BMI] 40.0-44.9, adult; E66.01 Morbid (severe) obesity due to excess calories; E11.65 Type 2 diabetes mellitus with hyperglycemia; E87.8 Other disorders of electrolyte and fluid balance, not elsewhere classified; E78.5 Hyperlipidemia, unspecified; I11.0 Hypertensive heart disease with heart failure; D72.1 Eosinophilia; I25.10 Atherosclerotic heart disease of native coronary artery without angina pectoris; E03.9 Hypothyroidism, unspecified; T50.2X5A Adverse effect of carbonic-anhydrase inhibitors, benzothiadiazides and other diuretics, initial encounter; Y92.89 Other specified places as the place of occurrence of the external cause; I25.2 Old myocardial infarction; Z95.1 Presence of aortocoronary bypass graft; Z88.4 Allergy status to anesthetic agent; Z91.030 Bee allergy status; Z95.0 Presence of cardiac pacemaker; Z87.891 Personal history of nicotine dependence; Z82.49 Family history of ischemic heart disease and other diseases of the circulatory system; Z80.3 Family history of malignant neoplasm of breast; Z79.899 Other long term (current) drug therapy; Z79.82 Long term (current) use of aspirin

== ENCOUNTER → 2019-06-17 | Outpatient (CLI) | payer MEDICARE ==
[~2019-06-17] MED LIST changes: +ALPHAGAN-P 0.2%5 ML OS; +AVPAK AZITHROM250 MG PO; +FUROSEMIDE80 MG PO; +MUCINEX ER600 MG PO; +MUCINEX1200 M1 PO; +PRAVACHOL20 MG PO; +VITAMIN D32000 UNI1 PO; +ZITHROMAX250 MG PO
== END | disposition home or self-care (01) ==
LOC: CT 01:50
DX: J98.11 Atelectasis (principal); I10 Essential (primary) hypertension; I25.10 Atherosclerotic heart disease of native coronary artery without angina pectoris; R60.9 Edema, unspecified; R06.89 Other abnormalities of breathing

== ENCOUNTER → 2019-06-30 | Outpatient (CLI) | payer MEDICARE | END | disposition home or self-care (01) | LOC: CARD 09:03 | DX: I08.0 Rheumatic disorders of both mitral and aortic valves (principal) ==

== ENCOUNTER → 2019-09-14 | Outpatient (CLI) | payer MEDICARE ==
[2019-09-14 08:54] LABS: ALBUMIN 3.4 gm/dl (3.1-4.5); BILIRUBIN, DIRECT 0.1 mg/dL (0.0-0.2); TOTAL PROTEIN 7.1 gm/dL (6.4-8.2)
[2019-09-14 09:00] LABS: THYROID STIM HORMONE (HS) 4.48 uIU/ml (0.358-4.75)
== END | disposition home or self-care (01) ==
LOC: LAB 07:08
PROVIDERS: Internal Medicine Interventional Cardiology
DX: E78.2 Mixed hyperlipidemia (principal); I25.10 Atherosclerotic heart disease of native coronary artery without angina pectoris; I25.5 Ischemic cardiomyopathy; I42.0 Dilated cardiomyopathy

== ENCOUNTER → 2019-10-06 | Outpatient (CLI) | payer MEDICARE | END | disposition home or self-care (01) | LOC: CT 00:07 | DX: R91.1 Solitary pulmonary nodule (principal); J44.9 Chronic obstructive pulmonary disease, unspecified ==

== ENCOUNTER → 2020-02-04 | Outpatient (CLI) | payer MEDICARE ==
[2020-02-04 07:39] LABS: BASO # 0.1 10*3/uL (0.0-0.1); BASO % 1.1 % (0.0-1.0); EOS # 0.5 10*3/uL (0.0-0.4); HEMATOCRIT 47.1 % (42.0-52.0); HEMOGLOBIN 15.6 g/dl (14.0-18.0); LYMPH # 1.7 10*3/uL (1.3-4.4); LYMPH % 22.6 % (27.0-41.0); MEAN CELL VOLUME 90.4 fl (80.0-94.0); MEAN CORPUSCULAR HGB 29.9 pg (27.0-31.0); MEAN CORPUSCULAR HGB CONC 33.1 g/dl (33.0-37.0); MEAN PLATELET VOLUME 9.5 fl (9.6-12.3); MONO % 13.4 % (3.0-9.0); NEUT # 4.2 10*3/uL (2.3-7.9); NEUT % 56.5 % (47.0-73.0); PLATELET COUNT AUTOMATED 284 10*3/uL (130-400); RED BLOOD COUNT 5.21 10*6/uL (4.50-5.90); WHITE BLOOD COUNT 7.5 10*3/uL (4.8-10.8)
== END | disposition home or self-care (01) ==
LOC: LAB 07:11
PROVIDERS: Internal Medicine
DX: R06.00 Dyspnea, unspecified (principal)

== ENCOUNTER 2020-06-12 12:07 | Emergency (ER) | payer MEDICARE ==
[~2020-06-12] VITALS: Ht 177.8 cm; Wt 99.8 kg
[2020-06-12 12:49] LABS: BASO % 0.5 % (0.0-1.0); EOS # 0.3 10*3/uL (0.0-0.4); EOS % 4.9 % (1.0-4.0); HEMATOCRIT 43.4 % (42.0-52.0); LYMPH # 0.6 10*3/uL (1.3-4.4); MEAN CELL VOLUME 88.2 fl (80.0-94.0); MEAN CORPUSCULAR HGB 30.3 pg (27.0-31.0); MEAN CORPUSCULAR HGB CONC 34.3 g/dl (33.0-37.0); MEAN PLATELET VOLUME 8.9 fl (9.6-12.3); MONO # 0.5 10*3/uL (0.1-1.0); MONO % 7.7 % (3.0-9.0); NEUT # 4.9 10*3/uL (2.3-7.9); NEUT % 77.4 % (47.0-73.0); PLATELET COUNT AUTOMATED 228 10*3/uL (130-400); RED BLOOD COUNT 4.92 10*6/uL (4.50-5.90); RED CELL DISTRI WIDTH 14.2 % (0-14.5); WHITE BLOOD COUNT 6.3 10*3/uL (4.8-10.8)
[2020-06-12 13:15] LABS: ALBUMIN 3.1 gm/dl (3.1-4.5); CREATININE 1.42 mg/dL (0.70-1.30); POTASSIUM 4.2 mmol/L (3.5-5.1); TOTAL PROTEIN 7.1 gm/dL (6.4-8.2); TROPONIN I 0.016 ng/ml (<0.045)
[2020-06-12] MEDS ORDERED: VIBRAMYCIN100 MG PO (14:02)
[2020-06-12] MEDS ORDERED: PREDNISONE20 M1 PO (14:02)
== END 2020-06-12 14:00 | disposition home or self-care (01) ==
LOC: ED 12:07
PROVIDERS: Emergency Medicine
DX: J44.1 Chronic obstructive pulmonary disease with (acute) exacerbation (principal); Z91.030 Bee allergy status; Z88.4 Allergy status to anesthetic agent; Z79.899 Other long term (current) drug therapy; Z79.82 Long term (current) use of aspirin; Z87.891 Personal history of nicotine dependence

== ENCOUNTER 2020-07-15 10:22 | Emergency (ER) | payer MEDICARE ==
[~2020-07-15] VITALS: Ht 170.1 cm; Wt 99.8 kg
[~2020-07-15 10:22] MED LIST changes: +PREDNISONE20 M1 PO; +VIBRAMYCIN100 MG PO
== END 2020-07-15 11:57 | disposition home or self-care (01) ==
LOC: ED 10:22
DX: R05 Cough (principal); R06.02 Shortness of breath; R14.0 Abdominal distension (gaseous); I12.9 Hypertensive chronic kidney disease with stage 1 through stage 4 chronic kidney disease, or unspecified chronic kidney disease; E11.22 Type 2 diabetes mellitus with diabetic chronic kidney disease; N18.3 Chronic kidney disease, stage 3 (moderate); E78.5 Hyperlipidemia, unspecified; E66.01 Morbid (severe) obesity due to excess calories; I25.10 Atherosclerotic heart disease of native coronary artery without angina pectoris; Z20.828 Contact with and (suspected) exposure to other viral communicable diseases; Z91.030 Bee allergy status; Z88.7 Allergy status to serum and vaccine; Z79.899 Other long term (current) drug therapy; Z79.82 Long term (current) use of aspirin; Z87.891 Personal history of nicotine dependence

== ENCOUNTER → 2022-10-04 | Outpatient (CLI) | payer MEDICARE ==
[~2022-10-04] MED LIST changes: +ALLOPURINOL300 MG PO; +BREZTRI AEROS10.7 GM INH; +DOXYCYCLINE HY100 M3 PO; -SPIRIVA -- 3018 MCG INH; +SPIRIVA RESPIMAT4 GM INH; +SYMB160 INH; +THEO-24400 MG PO; +VITAMIN D3125 MC1 PO; -VITAMIN D32000 UNI1 PO
[2022-10-04 08:05] LABS: CREATININE 1.54 mg/dL (0.70-1.30); POTASSIUM 4.3 mmol/L (3.5-5.1)
== END | disposition home or self-care (01) ==
LOC: LAB 07:27
PROVIDERS: ATTEND Internal Medicine Nephrology
DX: I10 Essential (primary) hypertension (principal); N17.9 Acute kidney failure, unspecified; R80.9 Proteinuria, unspecified; N25.81 Secondary hyperparathyroidism of renal origin; E55.9 Vitamin D deficiency, unspecified

== ENCOUNTER → 2022-10-22 | Outpatient (CLI) | payer MEDICARE ==
[2022-10-22 08:45] LABS: BASO # 0.1 10*3/uL (0.0-0.1); BASO % 0.6 % (0.0-1.0); EOS # 0.4 10*3/uL (0.0-0.4); EOS % 4.2 % (1.0-4.0); HEMATOCRIT 42.5 % (42.0-52.0); LYMPH % 20.3 % (27.0-41.0); MEAN CELL VOLUME 91.4 fl (80.0-94.0); MEAN CORPUSCULAR HGB 30.5 pg (27.0-31.0); MEAN CORPUSCULAR HGB CONC 33.4 g/dl (33.0-37.0); MEAN PLATELET VOLUME 9.7 fl (9.6-12.3); MONO % 10.7 % (3.0-9.0); NEUT # 6.2 10*3/uL (2.3-7.9); NEUT % 63.5 % (47.0-73.0); PLATELET COUNT AUTOMATED 257 10*3/uL (130-400); RED BLOOD COUNT 4.65 10*6/uL (4.50-5.90); RED CELL DISTRI WIDTH 17.2 % (0-14.5); WHITE BLOOD COUNT 9.7 10*3/uL (4.8-10.8)
[2022-10-22 09:08] LABS: ALKALINE PHOSPHATASE 64 U/L (45-117); BUN 25 mg/dl (7-24); CHLORIDE 103 mmol/L (98-107); CHOLESTEROL 177 mg/dL (<200); CREATININE 1.24 mg/dL (0.70-1.30); LDL CHOLESTEROL 102 mg/dL (9-159); POTASSIUM 3.8 mmol/L (3.5-5.1); SGPT/ALT 21 U/L (12-78); SODIUM 138 mmol/L (136-145); TRIGLYCERIDES 137 mg/dl (<150); URIC ACID 5.9 mg/dL (3.5-7.2)
[2022-10-22 10:25] LABS: VITAMIN D, 25-HYDROXY 60.6 ng/mL (30-100)
== END | disposition home or self-care (01) ==
LOC: US 07:30 → LAB 07:35
PROVIDERS: ATTEND Internal Medicine Nephrology
DX: N20.0 Calculus of kidney (principal); N28.1 Cyst of kidney, acquired; I10 Essential (primary) hypertension; N17.9 Acute kidney failure, unspecified; E87.70 Fluid overload, unspecified; R80.9 Proteinuria, unspecified; N25.81 Secondary hyperparathyroidism of renal origin; E55.9 Vitamin D deficiency, unspecified

== ENCOUNTER → 2022-12-10 | Outpatient (CLI) | payer MEDICARE ==
[2022-12-10 13:59] LABS: BILIRUBIN Negative (Negative); BLOOD Negative (Negative); CLARITY Clear (Clear); COLOR Yellow (Yellow); GLUCOSE Negative (Negative); KETONE Negative (Negative); LEUKO ESTERASE Negative (Negative); NITRITE Negative (Negative); PH 5.5 (4.5-8.0); UROBILINOGEN 0.2 E.U./dl (0.0-1.0)
[2022-12-10 14:57] LABS: BASO # 0.1 10*3/uL (0.0-0.1); BASO % 0.7 % (0.0-1.0); EOS # 0.2 10*3/uL (0.0-0.4); EOS % 1.8 % (1.0-4.0); HEMATOCRIT 45.5 % (42.0-52.0); LYMPH # 1.9 10*3/uL (1.3-4.4); MEAN CORPUSCULAR HGB 30.2 pg (27.0-31.0); MEAN CORPUSCULAR HGB CONC 33.2 g/dl (33.0-37.0); MONO # 1.1 10*3/uL (0.1-1.0); MONO % 12.6 % (3.0-9.0); NEUT # 5.7 10*3/uL (2.3-7.9); NEUT % 63.3 % (47.0-73.0); PLATELET COUNT AUTOMATED 301 10*3/uL (130-400); RED CELL DISTRI WIDTH 15.2 % (0-14.5)
[2022-12-10 15:17] LABS: RBC 0-2 rbc/hpf (0-2); WBC 0-2 wbc/hpf (0-5)
[2022-12-10 15:21] LABS: BUN 17 mg/dl (9-23); CHLORIDE 94 mmol/L (98-107); POTASSIUM 3.5 mmol/L (3.4-5.1)
[2022-12-10 15:34] LABS: VITAMIN D, 25-HYDROXY 70.3 ng/mL (30-100)
[2022-12-11 12:07] LABS: CREATININE,URINE 29.9 mg/dL (Not Estab.)
== END | disposition home or self-care (01) ==
LOC: LAB 12:39
PROVIDERS: ATTEND Internal Medicine Nephrology
DX: I10 Essential (primary) hypertension (principal); N25.81 Secondary hyperparathyroidism of renal origin; N17.9 Acute kidney failure, unspecified; E87.70 Fluid overload, unspecified; E55.9 Vitamin D deficiency, unspecified; R80.9 Proteinuria, unspecified; J98.11 Atelectasis

== ENCOUNTER → 2023-03-15 | Outpatient (CLI) | payer MEDICARE ==
[2023-03-15 08:39] LABS: BUN 17 mg/dl (9-23); CHLORIDE 99 mmol/L (98-107); POTASSIUM 3.9 mmol/L (3.4-5.1)
== END | disposition home or self-care (01) ==
LOC: LAB 07:13
PROVIDERS: ATTEND Nurse Practitioner Family
DX: N17.9 Acute kidney failure, unspecified (principal)

== ENCOUNTER → 2023-04-09 | Outpatient (CLI) | payer MEDICARE | END | disposition home or self-care (01) | LOC: RAD 14:48 | PROVIDERS: ATTEND Internal Medicine | DX: M16.11 Unilateral primary osteoarthritis, right hip (principal); J98.4 Other disorders of lung; I51.7 Cardiomegaly; R06.02 Shortness of breath ==

== ENCOUNTER 2023-05-17 07:29 | Emergency (ER) | payer MEDICARE ==
[~2023-05-17] VITALS: Ht 170.1 cm; Wt 90.7 kg
[2023-05-17] MEDS ORDERED: PREDNISOLONE5 M1 PO (08:36)
[2023-05-17] MEDS ORDERED: ALDACTONE25 M1 PO (08:38)
[2023-05-17] MEDS ORDERED: CEPHALEXIN500 M1 PO (08:49)
== END 2023-05-17 08:57 | disposition home or self-care (01) ==
LOC: ED 07:29
DX: S41.111A Laceration without foreign body of right upper arm, initial encounter (principal); S61.511A Laceration without foreign body of right wrist, initial encounter; M25.532 Pain in left wrist; J44.9 Chronic obstructive pulmonary disease, unspecified; M19.90 Unspecified osteoarthritis, unspecified site; Z91.030 Bee allergy status; Z88.4 Allergy status to anesthetic agent; Z79.82 Long term (current) use of aspirin; Z79.899 Other long term (current) drug therapy; Z95.0 Presence of cardiac pacemaker; Z87.891 Personal history of nicotine dependence; W01.0XXA Fall on same level from slipping, tripping and stumbling without subsequent striking against object, initial encounter; Y93.01 Activity, walking, marching and hiking; Y92.89 Other specified places as the place of occurrence of the external cause; Y99.8 Other external cause status

== ENCOUNTER → 2023-05-29 | Outpatient (CLI) | payer MEDICARE ==
[~2023-05-29] MED LIST changes: +ALDACTONE25 M1 PO; +CEPHALEXIN500 M1 PO; +PREDNISOLONE5 M1 PO
== END | disposition home or self-care (01) ==
LOC: WOUNDCARE 01:33
PROVIDERS: ATTEND Nurse Practitioner Primary Care
DX: S51.011A Laceration without foreign body of right elbow, initial encounter (principal); S41.111A Laceration without foreign body of right upper arm, initial encounter; S61.421A Laceration with foreign body of right hand, initial encounter; E03.9 Hypothyroidism, unspecified; I10 Essential (primary) hypertension; J44.9 Chronic obstructive pulmonary disease, unspecified; M19.90 Unspecified osteoarthritis, unspecified site; Z87.891 Personal history of nicotine dependence; Z95.0 Presence of cardiac pacemaker; Z79.82 Long term (current) use of aspirin; Z95.1 Presence of aortocoronary bypass graft; W19.XXXA Unspecified fall, initial encounter; Y93.89 Activity, other specified; Y92.89 Other specified places as the place of occurrence of the external cause; Y99.8 Other external cause status

== ENCOUNTER → 2023-06-04 | Outpatient (CLI) | payer MEDICARE | END | disposition home or self-care (01) | LOC: WOUNDCARE 00:12 | PROVIDERS: ATTEND Nurse Practitioner Family | DX: S41.111D Laceration without foreign body of right upper arm, subsequent encounter (principal); S61.421D Laceration with foreign body of right hand, subsequent encounter; S51.019D Laceration without foreign body of unspecified elbow, subsequent encounter; E03.9 Hypothyroidism, unspecified; I10 Essential (primary) hypertension; J44.9 Chronic obstructive pulmonary disease, unspecified; M19.90 Unspecified osteoarthritis, unspecified site; Z95.1 Presence of aortocoronary bypass graft; Z95.0 Presence of cardiac pacemaker; Z87.891 Personal history of nicotine dependence; X58.XXXD Exposure to other specified factors, subsequent encounter ==

== ENCOUNTER → 2023-07-04 | Outpatient (CLI) | payer MEDICARE ==
[2023-07-04 14:08] LABS: FREE T4 0.98 ng/dl (0.89-1.76)
== END | disposition home or self-care (01) ==
LOC: LAB 13:18 → CARD 14:00
PROVIDERS: ATTEND Internal Medicine Clinical Cardiac Electrophysiology
DX: I34.0 Nonrheumatic mitral (valve) insufficiency (principal); I50.22 Chronic systolic (congestive) heart failure; I25.5 Ischemic cardiomyopathy; Z79.899 Other long term (current) drug therapy

== ENCOUNTER → 2023-10-07 | Outpatient (CLI) | payer MEDICARE | END | disposition home or self-care (01) | LOC: CT 13:47 | PROVIDERS: ATTEND Internal Medicine Critical Care Medicine | DX: J98.11 Atelectasis (principal); R91.1 Solitary pulmonary nodule; M25.78 Osteophyte, vertebrae; M43.8X4 Other specified deforming dorsopathies, thoracic region; I70.0 Atherosclerosis of aorta; K57.30 Diverticulosis of large intestine without perforation or abscess without bleeding; M48.04 Spinal stenosis, thoracic region; K86.89 Other specified diseases of pancreas; I25.10 Atherosclerotic heart disease of native coronary artery without angina pectoris; I51.7 Cardiomegaly ==

== ENCOUNTER → 2023-11-05 | Outpatient (CLI) | payer MEDICARE ==
[2023-11-05 08:44] LABS: BUN 25 mg/dl (9-23); CHLORIDE 100 mmol/L (98-107); POTASSIUM 4.1 mmol/L (3.4-5.1)
== END | disposition home or self-care (01) ==
LOC: LAB 07:20
PROVIDERS: Internal Medicine Interventional Cardiology; ATTEND Physician Assistant Medical
DX: I11.0 Hypertensive heart disease with heart failure (principal); I25.5 Ischemic cardiomyopathy; I42.0 Dilated cardiomyopathy; I50.22 Chronic systolic (congestive) heart failure; Z79.899 Other long term (current) drug therapy

== ENCOUNTER 2024-06-14 10:09 | Emergency (ER) | payer MEDICARE ==
[~2024-06-14] VITALS: Ht 170.1 cm; Wt 94.3 kg
[~2024-06-14 10:09] MED LIST changes: +DIOVAN80 M1 PO; +MUCUS RELIEF600 MG PO; +VIBRA-TAB100 MG PO
[2024-06-14] MEDS ORDERED: Albuterol Sulfate 2.5 MG/3 ML VIAL NEB ONE (10:40)
[2024-06-14] MEDS ORDERED: methylPREDNISolone sod succ 125 MG VIAL IV ONE (10:40)
[2024-06-14] MEDS ORDERED: MAGNESIUM SULFATE 50 ML IV ONE (10:40)
[2024-06-14] MEDS ORDERED: AZITHROMYCIN 250 MG TAB PO ONE (10:45)
[2024-06-14 11:00] LABS: BASO % 0.2 % (0.0-1.0); EOS % 0.3 % (1.0-4.0); HEMATOCRIT 41.5 % (42.0-52.0); LYMPH # 0.5 10*3/uL (1.3-4.4); LYMPH % 5.6 % (27.0-41.0); MEAN CORPUSCULAR HGB 30.5 pg (27.0-31.0); MEAN CORPUSCULAR HGB CONC 32.8 g/dl (33.0-37.0); MEAN PLATELET VOLUME 9.5 fl (9.6-12.3); MONO % 10.3 % (3.0-9.0); NEUT % 83.1 % (47.0-73.0); PLATELET COUNT AUTOMATED 233 10*3/uL (130-400); RED BLOOD COUNT 4.46 10*6/uL (4.50-5.90); RED CELL DISTRI WIDTH 14.6 % (0-14.5); WHITE BLOOD COUNT 9.7 10*3/uL (4.8-10.8)
[2024-06-14 11:48] LABS: BUN 12 mg/dl (9-23); CHLORIDE 94 mmol/L (98-107)
[2024-06-14] MEDS ORDERED: AVPAK AZITHROM250 M1 PO (12:41)
[2024-06-14] MEDS ORDERED: PREDNISONE20 M1 PO (12:41)
== END 2024-06-14 13:02 | disposition home or self-care (01) ==
LOC: ED 10:09
PROVIDERS: Emergency Medicine
DX: J44.1 Chronic obstructive pulmonary disease with (acute) exacerbation (principal); I50.9 Heart failure, unspecified; I25.10 Atherosclerotic heart disease of native coronary artery without angina pectoris; I11.0 Hypertensive heart disease with heart failure; E78.5 Hyperlipidemia, unspecified; E11.9 Type 2 diabetes mellitus without complications; E78.00 Pure hypercholesterolemia, unspecified; Z91.030 Bee allergy status; Z88.8 Allergy status to other drugs, medicaments and biological substances; Z98.890 Other specified postprocedural states; Z87.891 Personal history of nicotine dependence

== ENCOUNTER → 2024-07-22 | Outpatient (CLI) | payer MEDICARE ==
[~2024-07-22] MED LIST changes: +AVPAK AZITHROM250 M1 PO
[2024-07-22 15:00] LABS: FREE T4 1.35 ng/dl (0.89-1.76)
== END | disposition home or self-care (01) ==
LOC: LAB 01:02 → WOUNDCARE 01:02
PROVIDERS: ATTEND Nurse Practitioner Family
DX: S80.11XA Contusion of right lower leg, initial encounter (principal); I87.2 Venous insufficiency (chronic) (peripheral); J44.9 Chronic obstructive pulmonary disease, unspecified; I10 Essential (primary) hypertension; R60.9 Edema, unspecified; M19.90 Unspecified osteoarthritis, unspecified site; E03.9 Hypothyroidism, unspecified; Z95.0 Presence of cardiac pacemaker; Z95.1 Presence of aortocoronary bypass graft; Z87.891 Personal history of nicotine dependence; Z79.82 Long term (current) use of aspirin; Z79.899 Other long term (current) drug therapy

== ENCOUNTER → 2024-07-29 | Outpatient (CLI) | payer MEDICARE | END | disposition home or self-care (01) | LOC: WOUNDCARE 00:25 | PROVIDERS: ATTEND Nurse Practitioner Family | DX: S80.11XD Contusion of right lower leg, subsequent encounter (principal); I87.2 Venous insufficiency (chronic) (peripheral); R60.9 Edema, unspecified; E03.9 Hypothyroidism, unspecified; I10 Essential (primary) hypertension; J44.9 Chronic obstructive pulmonary disease, unspecified; M19.90 Unspecified osteoarthritis, unspecified site; Z87.891 Personal history of nicotine dependence; Z95.1 Presence of aortocoronary bypass graft; Z95.0 Presence of cardiac pacemaker; X58.XXXD Exposure to other specified factors, subsequent encounter ==

== ENCOUNTER → 2024-08-06 | Outpatient (CLI) | payer MEDICARE | END | disposition home or self-care (01) | LOC: WOUNDCARE 03:33 | PROVIDERS: ATTEND Nurse Practitioner Family | DX: S80.11XD Contusion of right lower leg, subsequent encounter (principal); I87.2 Venous insufficiency (chronic) (peripheral); J44.9 Chronic obstructive pulmonary disease, unspecified; I10 Essential (primary) hypertension; R60.9 Edema, unspecified; M19.90 Unspecified osteoarthritis, unspecified site; E03.9 Hypothyroidism, unspecified; Z87.891 Personal history of nicotine dependence; Z95.0 Presence of cardiac pacemaker; Z95.1 Presence of aortocoronary bypass graft; Z79.82 Long term (current) use of aspirin; Z79.899 Other long term (current) drug therapy ==

== ENCOUNTER → 2024-08-19 | Outpatient (CLI) | payer MEDICARE | END | disposition home or self-care (01) | LOC: WOUNDCARE 01:47 | PROVIDERS: ATTEND Nurse Practitioner Family | DX: S80.11XD Contusion of right lower leg, subsequent encounter (principal); I87.2 Venous insufficiency (chronic) (peripheral); J44.9 Chronic obstructive pulmonary disease, unspecified; I10 Essential (primary) hypertension; R60.9 Edema, unspecified; M19.90 Unspecified osteoarthritis, unspecified site; E03.9 Hypothyroidism, unspecified; Z87.891 Personal history of nicotine dependence; Z95.0 Presence of cardiac pacemaker; Z95.1 Presence of aortocoronary bypass graft; Z79.82 Long term (current) use of aspirin; Z79.899 Other long term (current) drug therapy; X58.XXXD Exposure to other specified factors, subsequent encounter ==

== ENCOUNTER → 2024-09-02 | Outpatient (CLI) | payer MEDICARE | END | disposition home or self-care (01) | LOC: WOUNDCARE 01:35 | PROVIDERS: ATTEND Nurse Practitioner Family | DX: S80.11XD Contusion of right lower leg, subsequent encounter (principal); I83.018 Varicose veins of right lower extremity with ulcer other part of lower leg; L97.812 Non-pressure chronic ulcer of other part of right lower leg with fat layer exposed; I83.892 Varicose veins of left lower extremity with other complications; J44.9 Chronic obstructive pulmonary disease, unspecified; I10 Essential (primary) hypertension; R60.9 Edema, unspecified; I87.8 Other specified disorders of veins; M19.90 Unspecified osteoarthritis, unspecified site; E03.9 Hypothyroidism, unspecified; Z87.891 Personal history of nicotine dependence; Z95.0 Presence of cardiac pacemaker; Z95.1 Presence of aortocoronary bypass graft; Z79.82 Long term (current) use of aspirin; Z79.899 Other long term (current) drug therapy; X58.XXXD Exposure to other specified factors, subsequent encounter ==

== ENCOUNTER → 2024-09-23 | Outpatient (CLI) | payer MEDICARE | END | disposition home or self-care (01) | LOC: WOUNDCARE 02:13 | PROVIDERS: ATTEND Nurse Practitioner Family | DX: S80.11XD Contusion of right lower leg, subsequent encounter (principal); I83.018 Varicose veins of right lower extremity with ulcer other part of lower leg; L97.812 Non-pressure chronic ulcer of other part of right lower leg with fat layer exposed; R60.9 Edema, unspecified; I83.892 Varicose veins of left lower extremity with other complications; E03.9 Hypothyroidism, unspecified; I10 Essential (primary) hypertension; J44.9 Chronic obstructive pulmonary disease, unspecified; Z87.891 Personal history of nicotine dependence; Z95.1 Presence of aortocoronary bypass graft; Z95.0 Presence of cardiac pacemaker; X58.XXXD Exposure to other specified factors, subsequent encounter ==

== ENCOUNTER → 2024-09-24 | Outpatient (CLI) | payer MEDICARE | END | disposition home or self-care (01) | LOC: CT 01:34 | PROVIDERS: ATTEND Internal Medicine Critical Care Medicine | DX: R91.1 Solitary pulmonary nodule (principal); I51.7 Cardiomegaly; I25.10 Atherosclerotic heart disease of native coronary artery without angina pectoris; I77.810 Thoracic aortic ectasia; N28.1 Cyst of kidney, acquired; J43.9 Emphysema, unspecified ==

== ENCOUNTER → 2024-10-29 | Outpatient (CLI) | payer MEDICARE ==
[~2024-10-29] MED LIST changes: +DOXYCYCLINE MO100 MG PO; +EPIPEN 2-P0.3 MG/0.3 IJ; +FLONASE ALLERG9.9 ML NAS; -LEVOTHYROXINE50 MCG PO; +LEVOTHYROXINE75 MCG PO; +SINGULAIR10 M1 PO; +VITAMIN B-125000 MC2 PO; +VITAMIN C1000 M5 PO; +Ventolin 02.5 MG/3 M INH
== END | disposition home or self-care (01) ==
LOC: WOUNDCARE 10-14 02:59
PROVIDERS: ATTEND Nurse Practitioner Family
DX: S80.11XD Contusion of right lower leg, subsequent encounter (principal); I83.018 Varicose veins of right lower extremity with ulcer other part of lower leg; L97.812 Non-pressure chronic ulcer of other part of right lower leg with fat layer exposed; I83.892 Varicose veins of left lower extremity with other complications; R60.9 Edema, unspecified; E03.9 Hypothyroidism, unspecified; I10 Essential (primary) hypertension; J44.9 Chronic obstructive pulmonary disease, unspecified; M19.90 Unspecified osteoarthritis, unspecified site; Z87.891 Personal history of nicotine dependence; Z95.0 Presence of cardiac pacemaker; Z95.1 Presence of aortocoronary bypass graft; W19.XXXD Unspecified fall, subsequent encounter

== ENCOUNTER → 2025-07-14 | Outpatient (CLI) | payer MEDICARE | END | disposition home or self-care (01) | LOC: RAD 01:23 | PROVIDERS: ATTEND Internal Medicine Critical Care Medicine | DX: J98.11 Atelectasis (principal); J45.40 Moderate persistent asthma, uncomplicated; J98.6 Disorders of diaphragm; Z87.891 Personal history of nicotine dependence; Z68.34 Body mass index [BMI] 34.0-34.9, adult ==

== ENCOUNTER → 2025-09-23 | Outpatient (CLI) | payer MEDICARE ==
[2025-09-23 13:05] LABS: BASO # 0.1 10*3/uL (0.0-0.1); BASO % 0.7 % (0.0-1.0); EOS # 0.3 10*3/uL (0.0-0.4); EOS % 3.0 % (1.0-4.0); MEAN CELL VOLUME 93.9 fl (80.0-94.0); MEAN CORPUSCULAR HGB 29.3 pg (27.0-31.0); MEAN PLATELET VOLUME 9.9 fl (9.6-12.3); MONO # 1.1 10*3/uL (0.1-1.0); MONO % 11.9 % (3.0-9.0); NEUT # 5.9 10*3/uL (2.3-7.9); NEUT % 66.7 % (47.0-73.0); NUCLEATED RED BLOOD CELL 0.0 % (0.0-0.0); NUCLEATED RED BLOOD CELL 0.0 10*3/uL (0.0-0.0); PLATELET COUNT AUTOMATED 249 10*3/uL (130-400); RED CELL DISTRI WIDTH 15.0 % (0-14.5)
== END | disposition home or self-care (01) ==
LOC: CT 12:28
PROVIDERS: Internal Medicine Critical Care Medicine; ATTEND Internal Medicine Critical Care Medicine
DX: J45.40 Moderate persistent asthma, uncomplicated (principal); J30.9 Allergic rhinitis, unspecified; R91.1 Solitary pulmonary nodule; I51.7 Cardiomegaly; I25.10 Atherosclerotic heart disease of native coronary artery without angina pectoris; Z68.37 Body mass index [BMI] 37.0-37.9, adult; Z87.891 Personal history of nicotine dependence; M47.819 Spondylosis without myelopathy or radiculopathy, site unspecified

== ENCOUNTER 2025-11-13 08:40 | Emergency (ER) | payer MEDICARE ==
[~2025-11-13] VITALS: Wt 94.3 kg
[2025-11-13 09:53] LABS: BASO # 0.0 10*3/uL (0.0-0.1); BASO % 0.3 % (0.0-1.0); EOS # 0.1 10*3/uL (0.0-0.4); EOS % 1.0 % (1.0-4.0); MEAN CELL VOLUME 92.0 fl (80.0-94.0); MEAN CORPUSCULAR HGB 29.7 pg (27.0-31.0); MEAN PLATELET VOLUME 9.6 fl (9.6-12.3); MONO # 0.7 10*3/uL (0.1-1.0); MONO % 8.5 % (3.0-9.0); NEUT # 5.9 10*3/uL (2.3-7.9); NEUT % 76.1 % (47.0-73.0); NUCLEATED RED BLOOD CELL 0.0 % (0.0-0.0); NUCLEATED RED BLOOD CELL 0.0 10*3/uL (0.0-0.0); PLATELET COUNT AUTOMATED 195 10*3/uL (130-400); RED CELL DISTRI WIDTH 15.1 % (0-14.5)
[2025-11-13 10:21] LABS: BUN 26 mg/dl (9-23)
== END 2025-11-13 12:37 | disposition home or self-care (01) ==
LOC: ED 08:40
PROVIDERS: Student in an Organized Health Care Education/Training Program
DX: I11.0 Hypertensive heart disease with heart failure (principal); I50.9 Heart failure, unspecified; R06.02 Shortness of breath; J44.9 Chronic obstructive pulmonary disease, unspecified; I25.10 Atherosclerotic heart disease of native coronary artery without angina pectoris; E78.00 Pure hypercholesterolemia, unspecified; Z87.891 Personal history of nicotine dependence; Z98.890 Other specified postprocedural states; Z91.030 Bee allergy status; Z88.8 Allergy status to other drugs, medicaments and biological substances